=== PATIENT | male | born 1985 | race African-American/Black ===

== ENCOUNTER 2023-09-06 13:34 | Inpatient (IN) | payer OTHER ==
[2023-09-06 15:57] VITALS: BMI 32.9
[2023-09-06] MEDS ORDERED: MAG HYDROX/AL HYDROX/SIMETH 30 ML UNIT-DOSE CUP PO PRN (17:49)
[2023-09-06] MEDS ORDERED: guaiFENesin 600 MG TABLET.ER (FP) PO PRN (17:49)
[2023-09-06] MEDS ORDERED: MAGNESIUM HYDROX 2400MG/30ML ORAL SUSPENSION 30 ML CUP PO PRN (17:49)
[2023-09-06] MEDS ORDERED: BENZOCAINE/MENTHOL (CHLORASEPTIC ) LOZENGE MM PRN (17:49)
[2023-09-06] MEDS ORDERED: ACETAMINOPHEN 325 MG TABLET (FP) PO PRN (17:49)
[2023-09-06] MEDS ORDERED: NALOXONE HCL 0.4 MG/ML VIAL IM PRN (17:49)
[2023-09-06] MEDS ORDERED: IBUPROFEN 400 MG TABLET (FP) PO PRN (17:49)
[2023-09-06] MEDS ORDERED: BENZONATATE 200 MG CAPSULE PO PRN (17:49)
[2023-09-06] MEDS ORDERED: DICYCLOMINE HCL 10 MG CAPSULE PO PRN (17:49)
[2023-09-06] MEDS ORDERED: BISMUTH SUBSALICYLATE 524 MG/30 ML PO PRN (17:49)
[2023-09-06] MEDS ORDERED: LOPERAMIDE HCL 2 MG CAPSULE PO PRN (17:49)
[2023-09-06] MEDS ORDERED: POLYETHYLENE GLYCOL (HEALTHYLAX) 3350 17 GM PACKET PO PRN (17:49)
[2023-09-06] MEDS ORDERED: ONDANSETRON *ODT* 4 MG TABLET SL PRN (17:49)
[2023-09-06] MEDS ORDERED: NALOXONE HCL (KLOXXADO) 8 MG SPRAY NS PRN (17:49)
[2023-09-06] MEDS: MELATONIN 5 MG TABLETS PO SCH (23:10)
[2023-09-06] MEDS: THIAMINE 100 MG TABLET PO SCH (23:22)
[2023-09-07] MEDS: PRENATAL VITAMINS W/ FOLIC ACID TABLET (FP) PO SCH (10:58)
[2023-09-07 12:35] LABS: HEMATOCRIT 38.7 % (35.4-49); HEMOGLOBIN 12.9 GM/dL (11.7-16.9); MCH 30.9 pg (25.7-33.7); MCHC 33.2 g/dl (32.0-35.9); MEAN CELL VOLUME 93.1 fl (80-96); MEAN PLT VOLUME 8.4 fl (7.5-11.1); PLATELET COUNT 319 10^3/uL (134-434); POTASSIUM 4.4 mmol/L (3.5-5.1); RBC 4.16 M/mm3 (4.00-5.60); RDW 15.7 % (11.9-15.9); WHITE BLOOD COUNT 6.4 K/mm3 (4.0-10.0)
[2023-09-07 12:42] LABS: CALCIUM 8.8 mg/dL (8.5-10.1)
[2023-09-07 12:43] LABS: ALBUMIN 2.9 g/dl (3.4-5.0); BLOOD UREA NITROGEN 8.7 mg/dL (7-18)
[2023-09-07 12:46] LABS: CREATININE 0.9 mg/dL (0.55-1.3)
[2023-09-07 12:47] LABS: TOT PROT 6.2 g/dl (6.4-8.2)
[2023-09-07 12:48] LABS: BILIRUBIN,TOTAL 0.4 mg/dL (0.2-1)
[2023-09-07] MEDS: IBUPROFEN 600 MG TABLET (FP) PO PRN (18:40)
[2023-09-07] MEDS: chlordiazePOXIDE HCL 25 MG CAPSULE PO PRN (18:41)
[2023-09-07] MEDS: hydrOXYzine PAMOATE 25 MG CAPSULE (FP) PO PRN (18:41)
[2023-09-07] MEDS: METHOCARBAMOL 500 MG TABLET PO PRN (22:45)
[2023-09-07] MEDS: chlordiazePOXIDE HCL 25 MG CAPSULE PO SCH (22:45)
[2023-09-08] MEDS: PENICILLIN G BENZATHINE 2,400,000 UNIT/4 ML PFS IM ONE (15:14)
[2023-09-09] MEDS: chlordiazePOXIDE HCL 25 MG CAPSULE PO SCH (06:00)
[2023-09-10] MEDS ORDERED: chlordiazePOXIDE HCL 10 MG CAPSULE PO PRN
[2023-09-10] MEDS: chlordiazePOXIDE HCL 10 MG CAPSULE PO SCH (05:32)
[2023-09-11] MEDS: chlordiazePOXIDE HCL 10 MG CAPSULE PO SCH (05:44)
[2023-09-11] MEDS: NICOTINE POLACRILEX 2 MG GUM BUC PRN (19:09)
[2023-09-12] MEDS: chlordiazePOXIDE HCL 10 MG CAPSULE PO ONE (05:51)
[2023-09-12 09:20] VITALS: BP 131/73; PULSE 90; RESP 18; TEMP 98
== END 2023-09-12 09:30 | disposition home or self-care (01) | DRG 774 ==
LOC: YASAS 13:34 → Y6N 18:00
PROVIDERS: ADMIT Allergy & Immunology; ATTEND Surgery
PROC: HZ2ZZZZ Detoxification Services for Substance Abuse Treatment (ICD-10-PCS; principal; 2023-09-06)
DX: F10.230 Alcohol dependence with withdrawal, uncomplicated (principal); F14.20 Cocaine dependence, uncomplicated; F12.20 Cannabis dependence, uncomplicated; F17.210 Nicotine dependence, cigarettes, uncomplicated; Z86.19 Personal history of other infectious and parasitic diseases; Z86.11 Personal history of tuberculosis; Z59.00 Homelessness unspecified
CPT/HCPCS: 36415; 71046-TC-FY; 80053; 80305; 85027; 86593; 86780; 93005; 93010